=== PATIENT | female | born 1980 ===

== ENCOUNTER 2017-12-05 12:03 | Emergency (ER) | payer OTHER ==
[2015-07-11 08:45] VITALS: BMI 26.6
[2017-12-05 12:10] VITALS: O2SAT 98
[2017-12-05] MEDS ORDERED: Sodium Chloride 0.9% 1,000 ML IV STA (12:34)
[2017-12-05 12:55] LABS: BASO % 0.5 % (0.0-2.0); EOS # 0.2 K/uL (0.0-0.7); HEMOGLOBIN 11.6 g/dL (12.0-16.0); LYMPH # 2.2 K/uL (1.0-4.3); LYMPH % 34.1 % (20.0-40.0); MEAN CELL VOLUME 84.3 fl (81.0-99.0); MEAN CORPUSCULAR HEMOGLOBIN 27.8 pg (27.0-31.0); MEAN PLATELET VOLUME 7.5 fl (7.2-11.7); MONO # 0.8 K/uL (0.0-0.8); MONO % 13.1 % (0.0-10.0); NEUT # 3.1 K/uL (1.8-7.0); NEUT % 49.3 % (50.0-75.0); RBC 4.17 Mil/uL (3.80-5.20); RED CELL DISTRIBUTION WIDTH 12.4 % (11.5-14.5); WHITE BLOOD COUNT 6.4 K/uL (4.8-10.8)
[2017-12-05 13:12] LABS: ALBUMIN 3.7 g/dL (3.5-5.0); ALT/SGPT 24 U/L (9-52); AST/SGOT 25 U/L (14-36); BLOOD UREA NITROGEN 11 mg/dl (7-17); CALCIUM 8.9 mg/dL (8.4-10.2); GFR AFRICAN-AMERICAN > 60; GFR NON-AFRICAN AMERICAN > 60
--- NOTE | 2017-12-05 13:19 | ED PDOC ---
Syncope/Near Syncope/Dizziness Time Seen by Provider: 12/05/17 12:19 Chief Complaint (Nursing): Dizziness/Lightheaded History Per: Patient Onset/Duration Of Symptoms: Days (3) Current Symptoms Are (Timing): Intermittent Episodes Additional Complaint(s): Generalized weakness and lightheadedness [place] Denies chestb pain or palpitations. No NVD Past Medical History Vital Signs: Last Vital Signs Temp 98.5 F 12/05/17 12:07 Pulse 80 12/05/17 12:07 Resp 20 12/05/17 12:07 BP 102/70 12/05/17 12:07 Pulse Ox 98 12/05/17 12:07 - Medical History PMH: No Chronic Diseases Denies: Chronic Kidney Disease - Family History Family History: States: Unknown Family Hx - Home Medications Home Medications: Ambulatory Orders Medication Instructions Recorded Oxycodone HCl/Acetaminophen 5 - 325 mg PO Q4 PRN 07/12/15 [Percocet 5-325 mg Tablet] - Allergies Allergies/Adverse Reactions: Allergies Allergy/AdvReac Type Severity Reaction Status Date / Time No Known Allergies Allergy Verified 12/05/17 12:07 Review of Systems ROS Statement: Except As Marked, All Systems Reviewed And Found Negative Cardiovascular: Negative for: Chest Pain, Palpitations Gastrointestinal: Negative for: Nausea, Vomiting Neurological: Positive for: Dizziness Physical Exam - Reviewed Nursing Documentation Reviewed: Yes Vital Signs Reviewed: Yes - Physical Exam Appears: Positive for: Non-toxic, No Acute Distress Head Exam: Positive for: ATRAUMATIC, NORMAL INSPECTION, NORMOCEPHALIC Skin: Positive for: Normal Color, Warm, DRY Eye Exam: Positive for: EOMI, Normal appearance, PERRL ENT: Positive for: Normal ENT Inspection Neck: Positive for: Normal, Painless ROM Cardiovascular/Chest: Positive for: Regular Rate, Rhythm Respiratory: Positive for: CNT, Normal Breath Sounds Gastrointestinal/Abdominal: Positive for: Normal Exam, Soft Back: Positive for: Normal Inspection Extremity: Positive for: Normal ROM Neurologic/Psych: Positive for: Alert, Oriented - Laboratory Results Result Diagrams: 12/05/17 12:42 12/05/17 12:51 - ECG O2 Sat by Pulse Oximetry: 98 Disposition - Clinical Impression Clinical Impression: Dehydration - Patient ED Disposition Is Patient to be Admitted: No Counseled Patient/Family Regarding: Studies Performed, Diagnosis, Need For Followup, Rx Given - Disposition Referrals: [facility] [Outside] Disposition: Routine/Home Disposition Time: 14:41 Condition: FAIR Instructions: Dehydration, Adult (DC) Forms: [employer] ([place])
[2017-12-05 14:53] VITALS: BP 126/78; PULSE 78; RESP 18; TEMP 97
== END 2017-12-05 14:53 | disposition home or self-care (01) ==
LOC: H.ER 12:03
DX: E86.0 Dehydration (principal)

== ENCOUNTER 2017-12-23 13:27 | Emergency (ER) | payer OTHER ==
[2017-12-23 13:27] VITALS: BMI 26.6
--- NOTE | 2017-12-23 14:18 | ED PDOC ---
HPI: Wound Care - HPI Time Seen by Provider: 12/23/17 13:46 Chief Complaint (Nursing): Wound Check Chief Complaint (Provider): Evaluation of left breast wound History Per: Patient Exam Limitations: no limitations Onset/Duration Of Symptoms: Days Current Symptoms Are (Timing): Still Present Quality Of Symptoms: Painful Additional Complaint(s): 37 year old female presents to the ED for an evaluation of left breast wound. Patient reports she had a cyst removed by surgeon in [facility]. Last month, she noticed the site was infected and she saw the surgeon who prescribed her antibiotics and Motrin without any relief. She called her surgeon's office but the campus receptionist said the surgeon was not in the office so she came to the ED. PMD: Jose Ramon Tapia I Past Medical History Reviewed: Historical Data, Nursing Documentation, Vital Signs - Medical History PMH: No Chronic Diseases Denies: Chronic Kidney Disease - Family History Family History: States: Unknown Family Hx - Home Medications Home Medications: Ambulatory Orders Medication Instructions Recorded Oxycodone HCl/Acetaminophen 5 - 325 mg PO Q4 PRN 07/12/15 [Percocet 5-325 mg Tablet] traMADol [Ultram] 50 - 100 mg PO Q6H #20 tab 12/23/17 - Allergies Allergies/Adverse Reactions: Allergies Allergy/AdvReac Type Severity Reaction Status Date / Time No Known Allergies Allergy Verified 12/05/17 12:07 Review of Systems ROS Statement: Except As Marked, All Systems Reviewed And Found Negative Skin: Positive for: Other (wound on left breast) Psych: Negative for: Suicidal ideation (homicidal ideation) Physical Exam - Reviewed Nursing Documentation Reviewed: Yes Vital Signs Reviewed: Yes - Physical Exam Appears: Positive for: Non-toxic, No Acute Distress Head Exam: Positive for: ATRAUMATIC, NORMAL INSPECTION, NORMOCEPHALIC Skin: Negative for: Normal Color (wound on left upper breast, pink granulated tissue 5cm in diameter, no surrouding erythema ) Eye Exam: Positive for: Normal appearance ENT: Positive for: Normal ENT Inspection Neck: Positive for: Normal Respiratory: Negative for: Accessory Muscle Use, Respiratory Distress Neurologic/Psych: Positive for: Alert - ECG Pulse Ox Interpretation: Normal Medical Decision Making Medical Decision Making: Time: 1407 Initial Plan: --Ultram 100mg PO Patient wanted suture. I told her the wound is healing normally due to secondary intention healing. Upon provider evaluation patient is medically stable, and requires no further treatment in the ED at this time. Patient will be discharged with Utram 50- 100mg for wound dehiscence. Counseling was provided and all questions were answered regarding diagnosis and need for follow up with surgeon. There is agreement to discharge plan. Return if symptoms persist or worsen. Scribe Attestation: Documented by Forrest Burt, acting as a scribe for Elisabet Pascual PA-C. Provider Scribe Attestation: All medical record entries made by the Scribe were at my direction and personally dictated by me. I have reviewed the chart and agree that the record accurately reflects my personal performance of the history, physical exam, medical decision making, and the department course for this patient. I have also personally directed, reviewed, and agree with the discharge instructions and disposition. Disposition - Clinical Impression Clinical Impression: Wound dehiscence - Patient ED Disposition Is Patient to be Admitted: No - Disposition Referrals: Gilberto Zepeda DO [Primary Care Provider] - Osiel Bowens MD [Medical Doctor] - Disposition: Routine/Home Disposition Time: 14:19 Condition: STABLE Additional Instructions: Discussed follow-up with surgeon. Prescriptions: traMADol [Ultram] 50 - 100 mg PO Q6H #20 tab Instructions: Wound Dehiscence (DC) Forms: [employer] (Maltese)
[2017-12-23 14:25] VITALS: BP 105/67; PULSE 75; RESP 18; O2SAT 98
[2017-12-23 14:30] VITALS: TEMP 98.3
== END 2017-12-23 14:38 | disposition home or self-care (01) ==
LOC: H.ER 13:27 → SUPCPDRO 13:27 → H.ER 14:38
DX: T81.30XA Disruption of wound, unspecified, initial encounter (principal)

== ENCOUNTER 2018-03-17 16:16 | Emergency (ER) | payer OTHER ==
[2018-03-17 16:16] VITALS: BMI 26.6
[2018-03-17 16:28] VITALS: RESP 16; TEMP 99; O2SAT 99
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
[2018-03-17 17:17] LABS: BASO # 0.1 K/uL (0.0-0.2); BASO % 0.6 % (0.0-2.0); EOS # 0.3 K/uL (0.0-0.7); EOS % 3.8 % (0.0-4.0); HEMOGLOBIN 12.9 g/dL (12.0-16.0); LYMPH # 2.2 K/uL (1.0-4.3); LYMPH % 26.1 % (20.0-40.0); MEAN CELL VOLUME 84.3 fl (81.0-99.0); MEAN CORPUSCULAR HEMOGLOBIN 28.2 pg (27.0-31.0); MEAN CORPUSCULAR HGB CONC 33.4 g/dL (33.0-37.0); MEAN PLATELET VOLUME 7.5 fl (7.2-11.7); MONO # 0.8 K/uL (0.0-0.8); MONO % 9.4 % (0.0-10.0); NEUT % 60.1 % (50.0-75.0); RBC 4.58 Mil/uL (3.80-5.20); RED CELL DISTRIBUTION WIDTH 13.5 % (11.5-14.5); WHITE BLOOD COUNT 8.3 K/uL (4.8-10.8)
[2018-03-17 17:26] LABS: ALB/GLOB RATIO 1.1 (1.0-2.1); ALBUMIN 4.2 g/dL (3.5-5.0); ALT/SGPT 16 U/L (9-52); AST/SGOT 28 U/L (14-36); BLOOD UREA NITROGEN 26 mg/dl (7-17); CALCIUM 9.4 mg/dL (8.4-10.2); GFR NON-AFRICAN AMERICAN > 60
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
[2018-03-17 18:10] VITALS: PULSE 88
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
[2018-03-17] MEDS ORDERED: Fluorescein 1 mg Ophthalmic Strip OD ONE (18:35)
[2018-03-17] MEDS ORDERED: PROPARACAINE/FLUORESCEIN SOD 100 DROP/5 ML BOTTLE ONE (18:36)
[2018-03-17 19:01] LABS: BARBITURATES, UR NEGATIVE (NEGATIVE); BENZODIAZEPINES, UR POSITIVE (NEGATIVE); OPIATES, UR NEGATIVE (NEGATIVE); PHENCYCLIDINE, UR POSITIVE (NEGATIVE)
[2018-03-17 20:07] VITALS: BP 124/60
--- NOTE | 2018-03-18 09:23 | CARD ---
APPROVED REPORT Date of service: 03/17/2018 EKG Measurement Heart [id number] MD [id number] <Conclusion> Normal sinus rhythm Normal ECG
== END 2018-03-17 20:07 ==
LOC: H.ER 16:16
DX: S20.219A Contusion of unspecified front wall of thorax, initial encounter (principal); H21.01 Hyphema, right eye; H20.011 Primary iridocyclitis, right eye; H10.31 Unspecified acute conjunctivitis, right eye; S09.93XA Unspecified injury of face, initial encounter; V43.52XA Car driver injured in collision with other type car in traffic accident, initial encounter; Y92.410 Unspecified street and highway as the place of occurrence of the external cause

== ENCOUNTER 2018-05-27 17:28 | Emergency (ER) | payer MEDICAID, OTHER ==
[2018-05-27 17:28] VITALS: BMI 26.6
[2018-05-27 17:39] VITALS: BP 154/82; PULSE 85; RESP 16; TEMP 98; O2SAT 98
[2018-05-27] MEDS ORDERED: Lidocaine 2% w Epi 1:100,000 Inj IJ ONE (18:46)
[2018-05-27] MEDS ORDERED: Povidone Iodine Topical 10% Sol ONE (18:46)
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
== END 2018-05-27 20:51 | disposition left against medical advice (07) ==
LOC: H.ER 17:28
DX: S81.012A Laceration without foreign body, left knee, initial encounter (principal); Y92.89 Other specified places as the place of occurrence of the external cause; F10.10 Alcohol abuse, uncomplicated

== ENCOUNTER 2018-09-21 18:15 | Emergency (ER) | payer OTHER ==
[2018-09-21 18:15] VITALS: BMI 26.6
[2018-09-21 18:28] VITALS: BP 97/48; PULSE 77; RESP 11; TEMP 97.7; O2SAT 99
--- NOTE | 2018-09-21 18:35 | ED PDOC ---
HPI: Psych/Substance Abuse Time Seen by Provider: 09/21/18 18:16 Chief Complaint (Nursing): Substance Abuse Chief Complaint (Provider): Altered mental status ED Caveat: Uncooperative Additional Complaint(s): According to hospital staff, pt was upstairs in 6th floor visiting her father and found to be poorly responsive, excessively sleepy. Possible intoxication pt sleepy but easily arousable. reports that she is so sleepy because she hadn't eaten. while in ER room pt was witnessed by staff to be eating a banana and then fell asleep while eating it and dropped it on the floor pt reports that she does not want to be here. she denies using narcotic meds or illicit drugs or alcohol Past Medical History Vital Signs: Last Vital Signs Temp 97.7 F 09/21/18 18:23 Pulse 77 09/21/18 18:23 Resp 11 L 09/21/18 18:23 BP 97/48 L 09/21/18 18:23 Pulse Ox 99 09/21/18 18:23 - Medical History PMH: Denies: Chronic Kidney Disease - Family History Family History: States: Unknown Family Hx - Home Medications Home Medications: Ambulatory Orders Medication Instructions Recorded Oxycodone HCl/Acetaminophen 5 - 325 mg PO Q4 PRN 07/12/15 [Percocet 5-325 mg Tablet] traMADol [Ultram] 50 - 100 mg PO Q6H #20 tab 12/23/17 PrednisoLONE 1% [Pred Forte 1% 1 drop OD QID #1 bottle 03/17/18 Opht Susp] - Allergies Allergies/Adverse Reactions: Allergies Allergy/AdvReac Type Severity Reaction Status Date / Time No Known Allergies Allergy Verified 09/21/18 18:19 Review of Systems ROS Statement: Except As Marked, All Systems Reviewed And Found Negative Gastrointestinal: Positive for: Other (hungry) Neurological: Positive for: Other (sleepy) Physical Exam - Reviewed Nursing Documentation Reviewed: Yes Vital Signs Reviewed: Yes - Physical Exam Appears: Positive for: No Acute Distress Head Exam: Positive for: ATRAUMATIC, NORMOCEPHALIC Skin: Positive for: Warm, Dry Eye Exam: Positive for: Other (small pupils bilaterally EOMI) ENT: Negative for: Pharyngeal Erythema, Tonsillar Exudate Neck: Positive for: Painless ROM, Supple Cardiovascular/Chest: Positive for: Regular Rate, Rhythm. Negative for: Murmur Respiratory: Positive for: Normal Breath Sounds. Negative for: Respiratory Distress Gastrointestinal/Abdominal: Positive for: Soft. Negative for: Tenderness Back: Positive for: Normal Inspection. Negative for: Decreased ROM Extremity: Positive for: Normal ROM, Other (RIGHT antecubital fossa: track michael at site of vein with small hematoma). Negative for: Deformity Lymphatic: Negative for: Adenopathy Neurological/Psych: Positive for: Oriented (x3), Mood/Affect (sad mood and angry affect), litigation partner II-XII (intact), Other (sleepy but easily arousable,) - ECG O2 Sat by Pulse Oximetry: 99 - Progress ED Course And Treament: pt with acute altered mental status, signs of intoxication. previous charts demonstrates substance abuse. she is somewhat sleepy but oriented x 3 and reporting she does not desire further treatment. Disposition - Clinical Impression Clinical Impression: Substance abuse - Disposition Disposition: Routine/Home Disposition Time: 18:33 Condition: STABLE Additional Instructions: PLEASE GET HELP FOR ADDICTION SOON POSSIBLE Instructions: Drug Abuse and Drug Addiction (DC) Forms: [employer] (Faroese)
== END 2018-09-21 18:33 | disposition home or self-care (01) ==
LOC: H.ER 18:15
DX: F19.10 Other psychoactive substance abuse, uncomplicated (principal)

== ENCOUNTER 2018-10-22 22:43 | Emergency (ER) | payer OTHER ==
[2018-10-22 22:43] VITALS: BMI 26.6
[2018-10-22 22:52] VITALS: BP 139/109; PULSE 104; RESP 18; TEMP 99.1; O2SAT 98
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
== END 2018-10-22 23:25 | disposition home or self-care (01) ==
LOC: H.ER 22:43
DX: F19.10 Other psychoactive substance abuse, uncomplicated (principal)